=== PATIENT | male | born 1960 | race Caucasian/White ===

== ENCOUNTER 2023-07-15 15:46 | Outpatient (CLI) | payer OTHER ==
[2023-07-15 16:12] LABS: ESTIMATED AVERAGE GLUCOSE 166 mg/dL (70-100); HEMOGLOBIN A1c% 7.4 % (4.27-6.07)
== END 2023-07-15 15:47 | disposition home or self-care (01) ==
LOC: LAB 15:46
PROVIDERS: ATTEND Family Medicine
DX: E11.9 Type 2 diabetes mellitus without complications (principal)
CPT/HCPCS: 36415; 83036